=== PATIENT | male | born 1950 | race Caucasian/White ===

== ENCOUNTER 2018-07-10 12:20 | Inpatient (IN) | payer OTHER ==
[~2018-07-10] VITALS: Ht 162.6 cm; Wt 60.8 kg
[2018-08-02] MEDS ORDERED: OCUVITE EYE HE1 EACH PO (14:06)
[2018-08-02] MEDS ORDERED: GLIMEPIRIDE2 MG PO (14:06)
[2018-08-02] MEDS ORDERED: METFORMIN HCL500 M2 PO (14:06)
[2018-08-02] MEDS ORDERED: MULTI VITAMIN1 EACH PO (14:06)
== END 2018-08-10 18:28 | disposition home or self-care (01) | DRG 331 ==
LOC: SURG 08-08 09:52 → O/R 08-08 09:52 → SURH 08-08 10:15 → SURG 08-08 17:37
PROVIDERS: ADMIT Colon & Rectal Surgery
PROC: 07TB4ZZ Resection of Mesenteric Lymphatic, Percutaneous Endoscopic Approach (ICD-10-PCS; 2018-08-08)
PROC: 0DTU4ZZ Resection of Omentum, Percutaneous Endoscopic Approach (ICD-10-PCS; 2018-08-08)
PROC: 0DTK4ZZ Resection of Ascending Colon, Percutaneous Endoscopic Approach (ICD-10-PCS; principal; 2018-08-08 10:15)
DX: C18.2 Malignant neoplasm of ascending colon (principal); R59.0 Localized enlarged lymph nodes

== ENCOUNTER 2019-10-12 07:12 | Day surgery (SDC) | payer OTHER | END 2019-10-12 14:00 | disposition home or self-care (01) | LOC: AMB-ENDOS 07:12 → ADM 13:30 → AMB-ENDOS 14:00 | PROVIDERS: ATTEND Colon & Rectal Surgery | DX: C18.2 Malignant neoplasm of ascending colon (principal); K64.2 Third degree hemorrhoids ==